=== PATIENT | male | born 1975 | race Two or more races ===

== ENCOUNTER → 2019-12-12 | Outpatient (CLI) | payer OTHER ==
[~2019-12-12] MED LIST: OMNIPAQUE 350 MG/ML, 100ML BOTTLE ONE
== END | disposition home or self-care (01) ==
LOC: CFH 08:05 → MERGE 09:00
PROVIDERS: ATTEND Registered Nurse
DX: R16.1 Splenomegaly, not elsewhere classified (principal); I77.810 Thoracic aortic ectasia
CPT/HCPCS: 71275; 74175; Q9967